=== PATIENT | female | born 1995 | race Caucasian/White ===

== ENCOUNTER 2016-07-25 09:18 | Emergency (ER) | payer SELFPAY ==
[~2016-07-25] VITALS: Wt 58.1 kg
[~2016-07-25 09:18] MED LIST: AMOXICILLIN500 M2 PO; AMOXICILLIN500 M3 PO; ANAPROX DS550 MG PO; ATARAX25 MG PO; BLEPH-10 15 ML15 ML OP; CLARITIN10 MG PO; DEPO PROVER150 MG/M1 IM; IBUPROFEN600 MG PO; LIDEX 0.05% CRE15 GM T; MEDROL DOSEPAK4 MG PO; Motrin,Rufen800 MG PO; OMNICEF300 MG PO; ORTHO TRI-CYCL1 EACH PO; PREDNICOT20 MG PO; TRIMOX500 MG PO; VALTREX500 MG PO; ZITHROMAX250 MG PO; ZOFRAN ODT4 MG SL
[2016-07-25 09:30] VITALS: BP 114/64
[2016-07-25] MEDS ORDERED: FLONASE ALLERG9.9 ML NAS (09:36)
[2016-07-25] MEDS ORDERED: PREDNISONE10 MG PO (09:36)
[2016-07-25] MEDS ORDERED: AUGMENTIN 500 M1 TAB PO (09:36)
[2016-07-25] MEDS ORDERED: CLARITIN10 MG PO (09:36)
== END 2016-07-25 09:51 | disposition home or self-care (01) ==
LOC: ED 09:18
DX: S05.02XA Injury of conjunctiva and corneal abrasion without foreign body, left eye, initial encounter (principal); J01.90 Acute sinusitis, unspecified; X58.XXXA Exposure to other specified factors, initial encounter; Y93.9 Activity, unspecified; Y92.9 Unspecified place or not applicable; Y99.9 Unspecified external cause status

== ENCOUNTER 2018-07-01 22:58 | Emergency (ER) | payer OTHER ==
[~2018-07-01] VITALS: Ht 152.4 cm; Wt 52.6 kg
--- NOTE | ~2018-07-01 | EKG ---
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
[~2018-07-01 22:58] MED LIST changes: +AUGMENTIN 500 M1 TAB PO; +FLONASE ALLERG9.9 ML NAS; +PREDNISONE10 MG PO
[2018-07-01 23:01] VITALS: BP 110/66
[2018-07-01 23:26] LABS: BILIRUBIN 1+ (NEGATIVE); BLOOD TRACE-INTACT (NEGATIVE); CLARITY SL CLOUDY (CLEAR); COLOR YELLOW (YELLOW); GLUCOSE NEGATIVE (NEGATIVE); KETONE 2+ (NEGATIVE); LEUKO ESTERASE 2+ (NEGATIVE); NITRITE NEGATIVE (NEGATIVE); PH 5.5 (5.0-9.0); SPECIFIC GRAVITY >= 1.030 (1.005-1.030); UROBILINOGEN 0.2 E.U./dl (0.2-1.0)
[2018-07-01 23:32] LABS: BASO % 0.4 % (0.0-1.0); EOS % 0.4 % (1.0-4.0); HEMATOCRIT 41.3 % (37.0-47.0); HEMOGLOBIN 13.8 g/dl (12.0-16.0); LYMPH # 2.8 10*3/uL (1.3-4.4); LYMPH % 33.3 % (27.0-41.0); MEAN CELL VOLUME 90.2 fl (81.0-99.0); MEAN CORPUSCULAR HGB 30.1 pg (27.0-31.0); MEAN CORPUSCULAR HGB CONC 33.4 g/dl (33.0-37.0); MEAN PLATELET VOLUME 9.5 fl (9.6-12.3); MONO # 0.5 10*3/uL (0.1-1.0); NEUT % 59.7 % (47.0-73.0); PLATELET COUNT AUTOMATED 244 10*3/uL (130-400); RED BLOOD COUNT 4.58 10*6/uL (4.10-5.10); WHITE BLOOD COUNT 8.4 10*3/uL (4.8-10.8)
[2018-07-01 23:35] LABS: URINE AMPHETAMINES < 1000 (1000ng/ml); URINE BARBITURATES < 200 (200ng/ml); URINE BENZODIAZEPINES < 200 (200ng/ml); URINE CANNABINOIDS (THC) > 50 (50ng/ml); URINE COCAINE < 300 (300ng/ml); URINE METHADONE < 300 (300ng/ml); URINE OPIATES < 300 (300ng/ml)
[2018-07-01 23:39] LABS: URINE PHENCYCLIDINE < 25 (25ng/ml)
[2018-07-01 23:42] LABS: INTERNATIONAL NORM RATIO 1.1 (2.0-3.5)
[2018-07-01 23:48] LABS: ALBUMIN 4.1 gm/dl (3.1-4.5); ALKALINE PHOSPHATASE 50 U/L (45-117); BUN 13 mg/dl (7-24); CHLORIDE 106 mmol/L (98-107); CREATININE 0.76 mg/dL (0.55-1.02); POTASSIUM 3.5 mmol/L (3.5-5.1); SGOT/AST 10 IU/L (3-35); SGPT/ALT 13 U/L (12-78); SODIUM 138 mmol/L (136-145); TOTAL PROTEIN 7.9 gm/dL (6.4-8.2)
[2018-07-02 00:05] LABS: EPITHELIAL CELLS 45-50
[2018-07-02 00:06] LABS: BACTERIA TRACE
[2018-07-02] MEDS ORDERED: MACROBID100 M1 PO (00:37)
== END 2018-07-02 00:44 | disposition home or self-care (01) ==
LOC: ED 22:58
PROVIDERS: Physician Assistant
DX: R55 Syncope and collapse (principal); R82.71 Bacteriuria; R42 Dizziness and giddiness